=== PATIENT | male | born 1965 | race Hispanic/Latino ===

== ENCOUNTER 2018-06-16 09:25 | Inpatient (IN) | payer BC ==
[2018-06-15 09:06] LABS: BASOPHILS % 0.3 % (0.0-1.0); EOSINOPHILS # (AUTO) 0.3 (0.0-0.4); EOSINOPHILS % 2.8 % (0.0-6.0); HEMATOCRIT 44.2 % (38.2-49.6); HEMOGLOBIN 14.6 g/dL (14.0-18.0); LYMPHOCYTES % 24.2 % (18.0-39.1); MEAN CORPUSCULAR HEMOGLOBIN 27.4 pg (28-32); MEAN CORPUSCULAR VOLUME 83.1 fL (81-99); MONOCYTES % 8.4 % (4.4-11.3); NEUTROPHILS # (AUTO) 7.8 (2.1-6.9); NEUTROPHILS % 63.7 % (38.7-80.0); PLATELET COUNT 267 x10e3/uL (140-360); RED BLOOD COUNT 5.32 x10e6/uL (4.3-5.7); RED CELL DISTRIBUTION WIDTH 13.8 % (11.7-14.4)
--- NOTE | 2018-06-15 09:31 | Diagnostic Imaging Report ---
EXAMINATION: PA and lateral views of the chest. COMPARISON: None CLINICAL HISTORY: Preoperative study for prostate surgery DISCUSSION: Lungs are well-inflated and without focal airspace consolidation, pleural effusion, or pneumothorax. Tortuous thoracic aorta with otherwise normal cardiomediastinal contour. No pulmonary edema. No acute osseous abnormalities. Diffuse idiopathic skeletal hyperostosis of the thoracic spine incidentally noted. IMPRESSION: No acute cardiopulmonary abnormalities. Signed by: Dr. Tyshawn Arguello M.D. on 06/15/2018 9:28 AM
[2018-06-15 09:33] LABS: ALANINE AMINOTRANSFERASE 28 IU/L (0-55); ALBUMIN 3.6 g/dL (3.5-5.0); ALKALINE PHOSPHATASE 134 IU/L (40-150); ANION GAP 12.9 mmol/L (8-16); BLOOD UREA NITROGEN 15 mg/dL (7-26); BUN/CREATININE RATIO 15 (6-25); CALCIUM 9.1 mg/dL (8.4-10.2); CARBON DIOXIDE 24 mmol/L (22-29); CHLORIDE 103 mmol/L (98-107); CREATININE, SERUM 0.98 mg/dL (0.72-1.25); EST GLOMERULAR FILTRATION RATE > 60 ML/MIN (60-); GLUCOSE 115 mg/dL (74-118); POTASSIUM 3.9 mmol/L (3.5-5.1); SODIUM 136 mmol/L (136-145)
[2018-06-15 09:44] LABS: INR 0.83; PARTIAL THROMBOPLASTIN TIME 30.7 seconds (23.8-35.5); PROTHROMBIN TIME 12.2 seconds (11.9-14.5)
[~2018-06-16] VITALS: Ht 167.6 cm; Wt 125.8 kg
[~2018-06-16 09:25] MED LIST: AMLODIPINE BESY10 MG PO; METFORMIN HCL500 MG PO; SIMVASTATIN20 MG PO; TAMSULOSIN HCL0.4 MG PO
--- OUTSIDE RECORDS SUMMARY | 2018-06-16 09:26 | XMS REPORT ---
Author Author [facility] Address Unknown Phone Unavailable Care Team Providers Care Cotton Picking Machine Operator Name Role Phone MARCUS ACOSTA Unavailable Unavailable Problems This patient has no known problems. Allergies, Adverse Reactions, Alerts This patient has no known allergies or adverse reactions. Medications This patient has no known medications. Results Test Description Test Time Test Comments Text Results Atomic Results Result Comments CHEST 2 VIEWS 2018-06-15 09:27:00 [place] [address] Patient Name: GABRIEL DRISCOLL MR #: [id number] : 1965 Age/Sex: 53/M Req #: [id number] Adm Physician: Ordered by: MARCUS ACOSTA MD Report #: [id number] Location: OR Room/Bed: Procedure: [id number] DX/CHEST 2 VIEWS Exam Date: 06/15/18 Exam Time: 0840 REPORT STATUS: Signed EXAMINATION: PA and lateral views of the chest. COMPARISON: None CLINICAL HISTORY: Preoperative study for prostate surgery DISCUSSION: Lungs are well-inflated and without focal airspace consolidation, pleural effusion, or pneumothorax. Tortuous thoracic aorta with otherwise normal cardiomediastinal contour. No pulmonary edema. No acute osseous abnormalities. Diffuse idiopathic skeletal hyperostosis of the thoracic spine incidentally noted. IMPRESSION: No acute cardiopulmonary abnormalities. Signed by: Dr. Sosa Oliveros M.D. on 06/15/2018 9:28 AM Dictated By: SOSA OLIVEROS MD 7 Transcribed By: FAHAD on 06/15/18927 COPY TO: MARCUS ACOSTA MD
[2018-06-16] MEDS ORDERED: CEFOXITIN SOD 1 GM VIAL ONE (09:51)
[2018-06-16 10:35] LABS: BASOPHILS % 0.3 % (0.0-1.0); EOSINOPHILS # (AUTO) 0.4 (0.0-0.4); HEMATOCRIT 44.8 % (38.2-49.6); HEMOGLOBIN 15.1 g/dL (14.0-18.0); LYMPHOCYTES % 25.1 % (18.0-39.1); MEAN CORPUSCULAR HEMOGLOBIN 27.9 pg (28-32); MEAN CORPUSCULAR HGB CONC 33.7 g/dL (31-35); MEAN CORPUSCULAR VOLUME 82.7 fL (81-99); MONOCYTES % 8.4 % (4.4-11.3); NEUTROPHILS # (AUTO) 7.4 (2.1-6.9); NEUTROPHILS % 62.8 % (38.7-80.0); PLATELET COUNT 261 x10e3/uL (140-360); RED BLOOD COUNT 5.42 x10e6/uL (4.3-5.7); RED CELL DISTRIBUTION WIDTH 13.9 % (11.7-14.4)
[2018-06-16] MEDS ORDERED: BELLADONNA/OPIUM 30 MG SUPP RC ONE (12:04)
[2018-06-16] MEDS ORDERED: MORPHINE SULFATE INJ 4 MG/ML INJ 1ML IV PRN (14:15)
--- NOTE | 2018-06-16 14:35 | Operative Report ---
DATE OF PROCEDURE: June 16, 2018 PREOPERATIVE DIAGNOSIS: Benign prostatic hypertrophy with obstruction and decreased force of stream. POSTOPERATIVE DIAGNOSIS: Benign prostatic hypertrophy with obstruction and decreased force of stream. OPERATION PERFORMED: Green Light photovaporization of prostate. ANESTHESIA: General. INDICATIONS: This patient is a 53-year-old gentleman who has had severe problems with urgency, frequency, nocturia, and decreased force of stream. He had a normal prostate-specific antigen. A cystoscopy and uroflow revealed an obstructing prostate and a poor urinary stream. For further details, please refer to the history and physical. Procedure was done in the following fashion. The patient was taken to the operating room and placed under general anesthesia, and dressed with Hibiclens in the lithotomy position in the usual fashion. The urethral meatus was initially too small to accept the 22-Congolese Olympus laser cystoscope. The urethral meatus and distal urethra were dilated from 18-Congolese to 30-Congolese with [place] sounds. I then inserted the laser cystoscope under direct vision with the visual obturator. No other urethral strictures were encountered. The sphincter and verumontanum were intact. The prostate was estimated about 30 g. The bladder had mild trabeculation. Clear efflux was seen from both ureteral orifices. The ureteral orifices were close to the bladder neck. No tumors or bladder stones were identified. The visual obturator was removed. I then inserted the laser working instrument. The laser probe was set for the Green Light laser at 80 gamble for coagulation. On cutting, I started at 60 gamble and worked my way at 60 gamble around the bladder neck area taking care to avoid injury to the ureteral orifices. Once the bladder neck was opened up, I then proceeded to 120 gamble, and then worked my way backwards from the bladder neck. Ultimately, when I knew that I was in good shape and had lots of mobility, I then increased to 160 gamble. Care was taken to avoid injury to the verumontanum as a landmark. At the end of the procedure, the prostatic urethra appeared to be wide open and bleeding was minimal. The laser cystoscope was withdrawn, and a 22-Congolese, 3-way Coude catheter was inserted. The patient tolerated the procedure well and left the operating room in good condition. The total energy used was 123,031 joules. My plan at this time is to monitor the patient overnight on continuous bladder irrigation and on IV antibiotics. He also left the operating room with a belladonna and opium suppository. Job#: [id number] RI
[2018-06-16] MEDS ORDERED: FENTANYL CITRATE/PF 100MCG/2 ML INJ ONE ×2 (14:45→16:31)
[2018-06-16] MEDS: SODIUM CHLORIDE 0.9% 1000ML 1,000 ML IV SCH (15:40)
[2018-06-16 15:49] VITALS: BP 157/93
[2018-06-16 15:54] VITALS: BP 157/93
[2018-06-16] MEDS ORDERED: ONDANSETRON HCL INJ 2MG/ML 2ML 2 MG/ML VIAL ONE (15:57)
[2018-06-16] MEDS ORDERED: DEXAMETHASONE SOD PHOS INJ 4 MG/ML VIAL ONE (15:57)
[2018-06-16] MEDS ORDERED: PROPOFOL IV EMULSION 10 MG/ML 20 ML VIAL ONE (15:57)
[2018-06-16] MEDS ORDERED: LIDOCAINE HCL 2% LOCAL INJ 5 ML SDV VIAL INJ ONE (15:57)
[2018-06-16] MEDS ORDERED: SEVOFLURANE INHAL SOLN 250 ML PEN BTL ONE (15:57)
[2018-06-16] MEDS ORDERED: INFLUENZA VIRUS VAC SPLIT INJ 0.5 ML SYR IM SCH (16:13)
[2018-06-16] MEDS ORDERED: PNEUMOCOCCAL VACCINE POLYVALENT 23 MCG/0.5 ML VIAL IM SCH (16:13)
[2018-06-16] MEDS ORDERED: MIDAZOLAM HCL 2 MG/2 ML VIAL ONE (16:31)
[2018-06-16] MEDS: DOCUSATE SODIUM 100 MG CAP PO SCH (16:31)
[2018-06-16] MEDS: HYDROCODONE/APAP 7.5MG-325MG 1 EA TAB PO PRN ×2 (16:37→22:37)
[2018-06-16] MEDS: METFORMIN HCL 500 MG TAB PO SCH (16:39)
--- NOTE | 2018-06-16 19:10 | NUR ---
REPORT RECEIVED FROM OFF GOING NURSE, PT RESTING IN BED ALERT AND ORIENTED, NO DISTRESS NOTED, CBI IN PROGRESS WITH CLEAR OUT PUT, BED LOCKED AND LOW, IV INFUSING PER ORDER CALL LIGHT IN REACH, INSTRUCTED TO CALL WITH NEEDS
[2018-06-16 20:00] VITALS: BP 127/71
[2018-06-16] MEDS: SIMVASTATIN 20 MG TAB PO SCH (20:13)
[2018-06-16 20:15] VITALS: BP 127/78
[2018-06-17] VITALS (8 sets, daily range): BP systolic 112–151; BP diastolic 66–88
[2018-06-17] MEDS: SODIUM CHLORIDE 0.9% 1000ML 1,000 ML IV SCH ×3 (00:01→18:42)
[2018-06-17] MEDS: HYDROCODONE/APAP 7.5MG-325MG 1 EA TAB PO PRN ×2 (04:14→17:03)
--- NOTE | 2018-06-17 05:53 | NUR ---
PT PREVIOUSLY ASSISTED BACK IN BED FROM AMBULATING HALLWAY, PT ALERT AND ORIENTED, CBI IN PROGRESS, OUTPUT CLEAR WITH NO COMPLICATIONS NOTED, DENIES NEEDS, CALL LIGHT IN REACH, INSTRUCTED TO CALL WITH NEEDS, BED ALARM ACTIVATED
[2018-06-17 09:03] LABS: CHOL/HDL RATIO 4.4 (3.9-4.7)
[2018-06-17] MEDS: DOCUSATE SODIUM 100 MG CAP PO SCH ×2 (09:16→17:02)
[2018-06-17] MEDS: METFORMIN HCL 500 MG TAB PO SCH ×2 (09:16→17:02)
[2018-06-17] MEDS: AMLODIPINE BESYLATE 10 MG TAB PO SCH (09:18)
--- NOTE | 2018-06-17 10:04 | Consultation ---
DATE OF CONSULTATION: MEDICAL CONSULTATION PRIMARY CARE PHYSICIAN: None. UROLOGIST: Dr. Paul Rincon. REQUESTING PHYSICIAN: Dr. Paul Rincon. REASON FOR CONSULTATION: Medical management. CHIEF COMPLAINT: Enlarged prostate. HISTORY OF PRESENT ILLNESS: This is a 53-year-old man with a history of enlarged prostate with normal PSA of 0.4 and associated reduced urinary stream, postvoid dribbling and frequency. Patient underwent a GreenLight laser photovaporization and is now resting comfortably in bed. He denies any pain. PAST MEDICAL HISTORY: BPH with normal PSA, urinary tract infection, nocturia, hypertension, hyperlipidemia, diabetes mellitus type 2, colonic polyps, morbid obesity with BMI of 44.7, and erectile dysfunction. PAST SURGICAL HISTORY: Appendectomy, cystoscopy, vasectomy bilaterally, circumcision. ALLERGIES: PER ELECTRONIC MEDICAL RECORD. FAMILY AND SOCIAL HISTORY: Patient is . He drinks and smokes only on the weekends. He is a log truck driver. MEDICATIONS: Per electronic medical record. REVIEW OF SYSTEMS: Denies any fever, chills, sweats, nausea, vomiting, diarrhea, headache, vision changes, chest pain, back pain, or skin rash. PHYSICAL EXAMINATION VITAL SIGNS: Reviewed. GENERAL: A tired-appearing man, resting in bed. HEENT: Anicteric. CARDIOVASCULAR: Normal S1 and S2. LUNGS: Moderate breath sounds. ABDOMEN: Soft, nontender. EXTREMITIES: No edema or calf tenderness. : No Win in place. SKIN: Dry. PSYCHIATRIC: Normal affect. NEUROLOGICAL: Alert and oriented x3, moves all extremities. LABS: Reviewed. MEDICATIONS: Reviewed. ASSESSMENT: This is a 53-year-old man with; 1. Benign prostatic hypertrophy. 2. Diabetes mellitus type 2. 3. Morbid obesity, body mass index of 44.7. 4. Hypertension. 5. Hyperlipidemia. 6. Erectile dysfunction. PLAN 1. He is status post GreenLight photovaporization of the prostate. He is doing well, likely discharge later today, we will defer to Dr. Rincon. 2. Check hemoglobin A1c and lipid panel. 3. Resume his home medications. 4. Start a diabetic diet now. 5. Caloric restriction critical for improvement in his diabetes. Patient has lost 14 pounds since he started a new diet. 6. We will use SCD for DVT prophylaxis. 7. Disposition, discharge plan likely home today, will defer to Dr. Rincon. Patient can followup with me in the clinic for internal medicine management. Thank you, Dr. Rincon for this consultation. Job#: [id number] SHELBIE
--- NOTE | 2018-06-17 11:28 | NUR ---
Nutrition Screen Note RD Recommendation for Physician: Continue diet as ordered Plan of Care: RD following, monitoring for adequacy and tolerance Nutrition reason for involvement: Nutrition Risk Trigger - MST Primary Diagnose(s):BPH Ht: 66in Wt:277.25lbs BMI:44.7 kg/m2 IBW:142lbs RD Assessment:(06/17/2018) Initial encounter with patient. Pt is reporting a good appetite, but he has been trying to eat better. He states that he has voluntarily lost 14 pound since the beginning of the year. Pt denies any difficulty chewing or swallowing nor has any nausea,vomiting or diarrhea. Current Diet: 1800 ADA diet Malnutrition Evaluation (06/17/2018) The patient does not meet criteria for a specified degree of malnutrition at this time. Will re-evaluate at follow-up as appropriate. Diet Education Needs Assessment: Diet education not indicated. Diet Adequacy: Meeting calorie needs, Meeting protein needs, Meeting fluid needs Tolerance: Tolerating PO Nutrition Care Level: Damian Mckinnon RD, LD, CNSC
--- NOTE | 2018-06-17 15:18 | Progress Note ---
DATE: June 17, 2018 UROLOGY PROGRESS NOTE SUBJECTIVE: The patient is now one day status post GreenLight photovaporization of the prostate. He states that he feels good. The patient is breathing without difficulty. His abdomen is soft. There is clear efflux from the catheter with continuous bladder irrigation running at a slow rate. There is no evidence of epididymitis and there is no evidence of a deep venous thrombophlebitis. The patient's temperature is 98.5. His BUN is 15, creatinine 0.98, hemoglobin 15.1, and hematocrit 44.8. IMPRESSION AND PLAN: My plan at this time is to have the Win catheter removed in the morning for a trial of voiding. Job#: [id number] LPA
--- NOTE | 2018-06-17 19:10 | NUR ---
REPORT RECEIVED FROM OFF GOING NURSE, PT RETURNING TO ROOM FROM AMBULATING HALLWAY, RESTING IN BED ALERT AND ORIENTED, NO DISTRESS NOTED, CBI IN PROGRESS WITH NO COMPLICATIONS NOTED, IV INFUSING PER ORDER, PT DENIES NEEDS, CALL LIGHT IN REACH, INSTRUCTED TO CALL WITH NEEDS
[2018-06-17] MEDS: SIMVASTATIN 20 MG TAB PO SCH (20:51)
--- NOTE | 2018-06-17 22:07 | NUR ---
PT AMBULATING HALLWAY WITH NO DISTRESS NOTED
[2018-06-18] VITALS: BP 135/79
[2018-06-18] MEDS: HYDROCODONE/APAP 7.5MG-325MG 1 EA TAB PO PRN (01:15)
--- NOTE | 2018-06-18 02:10 | NUR ---
PT AMBULATING [address], NO DISTRESS NOTED, CBI IN PROGRESS, IV INFUSING PER ORDER
[2018-06-18] MEDS: SODIUM CHLORIDE 0.9% 1000ML 1,000 ML IV SCH (03:19)
[2018-06-18 04:00] VITALS: BP 127/72
--- NOTE | 2018-06-18 04:49 | NUR ---
PT RESTING IN BED ALERT AND ORIENTED, NO DISTRESS NOTED, CBI IN PROGRESS WITH NO COMPLICATIONS NOTED, IV INFUSING PER ORDER, CALL LIGHT IN REACH, INSTRUCTED TO CALL WITH NEEDS
--- NOTE | 2018-06-18 06:40 | NUR ---
CBI D/C'D, HUMPHRIES REMOVED, 30 ML REMOVED FROM HUMPHRIES BALLOON, NO DISTRESS OR COMPLICATIONS NOTED, DENIES NEED, PT AMBULATING HALLWAY, PT GIVEN URINAL AND EDUCATED TO INFORM NURSE OF FIRST VOID FOR ASSESSMENT, IV INFUSING PER ORDER
--- NOTE | 2018-06-18 07:00 | NUR ---
BEDSIDE ROUNDS COMPLETE NO DISTRESS NOTED UPDATED ON POC VOICED UNDERSTANDING, DENIES PAIN AT THIS TIME, CALL LIGHT IN REACH WILL CONTINUE TO MONITOR
[2018-06-18] MEDS ORDERED: COLACE100 MG PO (07:03)
--- NOTE | 2018-06-18 07:06 | NUR ---
IM- Progress Note O/N no events REVIEW OF SYSTEMS: Denies any fever, chills, sweats, nausea, vomiting, diarrhea, headache, vision changes, chest pain, back pain, or skin rash. PHYSICAL EXAMINATION VITAL SIGNS: Reviewed. GENERAL: A tired-appearing man, resting in bed. HEENT: Anicteric. CARDIOVASCULAR: Normal S1 and S2. LUNGS: Moderate breath sounds. ABDOMEN: Soft, nontender. EXTREMITIES: No edema or calf tenderness. : Casas in place. SKIN: Dry. PSYCHIATRIC: Normal affect. NEUROLOGICAL: Alert and oriented x3, moves all extremities. LABS: Reviewed. MEDICATIONS: Reviewed. ASSESSMENT: This is a 53-year-old man with; 1. Benign prostatic hypertrophy. 2. Diabetes mellitus type 2. 3. Morbid obesity, body mass index of 44.7. 4. Hypertension. 5. Hyperlipidemia. 6. Erectile dysfunction. PLAN 1. He is status post GreenLight photovaporization of the prostate. He is doing well, likely discharge later today, we will defer to Dr. Rincon. 2. Check hemoglobin A1c and lipid panel. 3. Resume his home medications. 4. Start a diabetic diet now. 5. Caloric restriction critical for improvement in his diabetes. Patient has lost 14 pounds since he started a new diet. 6. We will use SCD for DVT prophylaxis. 7. Disposition, discharge plan likely home today, will defer to Dr. Rincon. Patient can followup with me in the clinic for internal medicine management. Thank you, Dr. Rincno for this consultation. 06/18 doing well; casas discontinued; hba1c/LD 7.4/117. ADA diet; Medically clear for d/c. Govind Loco MD, PhD
[2018-06-18 07:47] VITALS: BP 135/76
--- NOTE | 2018-06-18 08:33 | NUR ---
PATIENT URINATED 300 ML IN URINAL AFTER URINARY CATHETER REMOVED.
[2018-06-18] MEDS: AMLODIPINE BESYLATE 10 MG TAB PO SCH (08:34)
[2018-06-18] MEDS: DOCUSATE SODIUM 100 MG CAP PO SCH (08:34)
[2018-06-18] MEDS: METFORMIN HCL 500 MG TAB PO SCH (08:34)
[2018-06-18 11:36] VITALS: BP 164/95
[2018-06-18] MEDS ORDERED: MACROBID 100 M100 MG PO (12:06)
[2018-06-18 12:22] VITALS: BP 164/95
--- NOTE | 2018-06-18 12:43 | Progress Note ---
DATE: June 18, 2018 DISCHARGE PROGRESS NOTE The patient is now 2 days status post GreenLight photovaporization of the prostate. The Win catheter was removed this morning. The patient has voided with a good stream. He has perfect control. He denies pain. My plan at this time is to have resume his preoperative medications and go home on Colace 100 mg p.o. twice daily and on Macrobid 100 mg p.o. twice daily, #20. He can stop the Flomax at this point in time. He will have return appointment to see me again in 2 weeks. Job#: [id number] SHELBIE
--- NOTE | 2018-06-18 14:29 | Discharge Summary ---
FINAL DISCHARGE DIAGNOSES 1. Benign prostatic hypertrophy with obstruction and decreased force of stream. 2. Non-insulin dependent diabetes mellitus. 3. Hypertension. OPERATIONS PERFORMED: GreenLight photovaporization of the prostate. SURGEON: Dr. Paul Rincon. CONSULTING PHYSICIAN: Dr. Govind Loco. HISTORY OF PRESENT ILLNESS: This patient is a 53-year-old male who for the past 10 years has had problems with urgency, frequency, decreased force of stream, and nocturia. He had a cystoscopy and uroflow, which revealed a poor urinary stream and an obstructing prostate. He had a normal prostate specific antigen. For further details, please refer to the preop history and physical. HOSPITAL COURSE: The patient came into the hospital on June 16, 2018 and had a GreenLight photovaporization of the prostate. He tolerated the procedure well and left the operating room in good condition. On the 2nd postoperative day, the Win catheter was removed, and the patient voided with a good urinary stream and he had perfect control. The patient's Flomax has been discontinued. He will go home on Macrobid 100 mg p.o. twice daily, Colace 100 mg p.o. twice daily, and resume his preoperative medications except for Flomax which is now discontinued. He will have return appointment to see me again in 2 weeks. Job#: [id number] LPA
== END 2018-06-18 12:55 | disposition home or self-care (01) | DRG 713 ==
LOC: OR 09:25 → PACU V 14:08 → MED/SURG 15:04
PROVIDERS: ADMIT Urology; ATTEND Urology
PROC: 0V508ZZ Destruction of Prostate, Via Natural or Artificial Opening Endoscopic (ICD-10-PCS; principal; 2018-06-16 12:00)
DX: N40.1 Benign prostatic hyperplasia with lower urinary tract symptoms (principal); Z68.41 Body mass index [BMI] 40.0-44.9, adult; N13.8 Other obstructive and reflux uropathy; R35.1 Nocturia; R39.12 Poor urinary stream; R30.0 Dysuria; N52.8 Other male erectile dysfunction; K64.4 Residual hemorrhoidal skin tags; E11.9 Type 2 diabetes mellitus without complications; I10 Essential (primary) hypertension; Z86.010 Personal history of colon polyps; E78.00 Pure hypercholesterolemia, unspecified; Z83.6 Family history of other diseases of the respiratory system; Z84.89 Family history of other specified conditions; E66.01 Morbid (severe) obesity due to excess calories; R35.0 Frequency of micturition; R39.15 Urgency of urination; Z01.810 Encounter for preprocedural cardiovascular examination; Z01.812 Encounter for preprocedural laboratory examination; Z01.811 Encounter for preprocedural respiratory examination; Z79.84 Long term (current) use of oral hypoglycemic drugs
CPT/HCPCS: 36415; 52648; 71046; 80053; 80061; 82948; 83036; 85025; 85610; 85730; 90732; 93005; 96361; J0694; J1100; J2001; J2250; J2405; J7030

== ENCOUNTER 2018-11-23 11:36 | Inpatient (IN) | payer BC ==
[~2018-11-23] VITALS: Ht 167.6 cm; Wt 125.6 kg
[~2018-11-23 11:36] MED LIST changes: +COLACE100 MG PO; +MACROBID 100 M100 MG PO
--- OUTSIDE RECORDS SUMMARY | 2018-11-23 13:19 | XMS REPORT | Clinical Summary ---
Author Author [facility] Address Unknown Phone Unavailable Care Team Providers Care Caustic Operator Name Role Phone Keyonna Baltazar MD PCP Allergies No Known Allergies Medications End Date Status Medication Sig Dispensed Refills Start Date 10/24/2018 pregabalin (LYRICA) 25 MG Take 1 60 capsule 0 capsule capsule (25 9 mg total) by mouth 2 (two) times a day for 30 days. Active Problems Not on file Encounters Care Team Description Date Type Specialty Matt Umanzor MD Pain in both lower extremities (Primary Dx); Other diabetic neurological complication associated with type 2 diabetes mellitus (HCC) 09/24/2018 Emergency Emergency Medicine after 11/22/2017 Social History Date Tobacco Use Types Packs/Day Years Used Current Some Day Smoker Smokeless Tobacco: Never Used Alcohol Use Drinks/Week oz/Week Comments Not Currently Sex Assigned at Date Recorded Not on file Industry Job Start Date Occupation Not on file Not on file Not on file Travel End Travel History Travel Start No recent travel history available. Last Filed Vital Signs Time Taken Vital Sign Reading 09/24/2018 3:03 PM CDT Blood Pressure 141/96 09/24/2018 3:03 PM CDT Pulse 81 09/24/2018 3:03 PM CDT Temperature 36.6 C (97.8 F) 09/24/2018 3:03 PM CDT Respiratory Rate 18 09/24/2018 3:03 PM CDT Oxygen Saturation 98% - Inhaled Oxygen - Concentration - Weight - - Height - - Body Mass Index - Plan of Treatment Health Maintenance Due Date Last Done Comments COLONOSCOPY SCREENING 2013 SHINGLES VACCINES (#1) 2013 INFLUENZA VACCINE 11/30/2018 Procedures Comments Procedure Name Priority Date/Time Associated Diagnosis XR KNEE 1 OR 2 VW LEFT STAT 09/24/2018 2:31 PM CDT XR KNEE 1 OR 2 VW RIGHT STAT 09/24/2018 2:30 PM CDT after 11/22/2017 Results * XR Knee 1 Or 2 Vw Left (09/24/2018 2:31 PM CDT) Specimen Narrative Performed At Procedure:XR KNEE 2 VW LEFT [facility] REFERRING PHYSICIAN: JILLIAN TYSON HISTORY: Knee paininitial exam COMPARISON: None FINDINGS: No evidence of fracture or dislocation is seen. The joint spaces are maintained. No osteolytic or osteoblastic lesion is identify. Regional soft tissue is unremarkable. No radiopaque foreign body is seen. XR KNEE2 VW LEFTacquired. IMPRESSION: No radiographic evidence of acute fracture or dislocation of the left knee. [id number] Procedure Note Interface, Radiology Results Incoming - 09/24/2018 2:39 PM CDT Procedure:XR KNEE 2 VW LEFT REFERRING PHYSICIAN: JILLIAN TYSON HISTORY: Knee pain initial exam COMPARISON: None FINDINGS: No evidence of fracture or dislocation is seen. The joint spaces are maintained. No osteolytic or osteoblastic lesion is identify. Regional soft tissue is unremarkable. No radiopaque foreign body is seen. XR KNEE 2 VW LEFT acquired. IMPRESSION: No radiographic evidence of acute fracture or dislocation of the left knee. [id number] Performing Organization Address City/State/Zipcode Phone Number [facility] [address] [place] [address] * XR Knee 1 Or 2 Vw Right (09/24/2018 2:30 PM CDT) Specimen Narrative Performed At Procedure:XR KNEE2 VW RIGHT [facility] REFERRING PHYSICIAN: JILLIAN TYSON HISTORY: Knee paininitial exam COMPARISON: None FINDINGS: No evidence of fracture or dislocation is seen. The joint spaces are maintained. No osteolytic or osteoblastic lesion is identify. Regional soft tissue is unremarkable. No radiopaque foreign body is seen. XR KNEE2 VW RIGHTacquired. IMPRESSION: No radiographic evidence of acute fracture or dislocation of the right knee. [id number] Procedure Note Interface, Radiology Results Incoming - 09/24/2018 2:39 PM CDT Procedure:XR KNEE 2 VW RIGHT REFERRING PHYSICIAN: JILLIAN TYSON HISTORY: Knee pain initial exam COMPARISON: None FINDINGS: No evidence of fracture or dislocation is seen. The joint spaces are maintained. No osteolytic or osteoblastic lesion is identify. Regional soft tissue is unremarkable. No radiopaque foreign body is seen. XR KNEE 2 VW RIGHT acquired. IMPRESSION: No radiographic evidence of acute fracture or dislocation of the right knee. [id number] Performing Organization Address City/State/Zipcode Phone Number [facility] [address] [place] [address] after 11/22/2017 Insurance Type Payer Benefit Subscriber ID Effective Phone Address Plan / Dates Group PPO BCBS BCBS xxxxxxxxxxxxxx [id number] CHOICE resent PPO/LUPE RUSSELL PPO Advance Directives Patient has advance care planning documents on file. For more information, charlee mayer contact: Abel Schneider [address] [place] [address]
[2018-11-23 13:30] VITALS: BP 127/91
--- NOTE | 2018-11-23 13:30 | NUR ---
RECD PT FROOM HOME DIRECT ADMIT,VIA W/C AAOX3 DENIES PAIN,NO DISTRESS NOTED,IV STARTED TO LT FA 20,TOLERATED WELL,DR DAO OFFICE INFORMED OF CONSULT.
[2018-11-23] MEDS ORDERED: DEXTROSE 50% SYRINGE 50 ML IV PRN (13:45)
[2018-11-23] MEDS ORDERED: TERBINAFINE HC250 MG PO (13:49)
--- NOTE | 2018-11-23 14:12 | NUR ---
RECEIVED ORDER FOR SNF, NO NOTES AVAILABLE TO PUT PACKET TOGETHER FOR SNF, NEED H AND P, PT, NOTES AND MEDICATIONS TO BE ABLE TO START PROCESS.
--- NOTE | 2018-11-23 14:16 | NUR ---
PT IS INDEPENDENT, EMPLOYED
[2018-11-23] MEDS ORDERED: SODIUM CHLORIDE 0.9% 250ML 250 ML ONE (14:31)
[2018-11-23 15:13] LABS: BILIRUBIN,URINE NEGATIVE (NEGATIVE); CLARITY,URINE SL CLOUDY (CLEAR); COLOR,URINE YELLOW (YELLOW); KETONES,URINE NEGATIVE (NEGATIVE); LEUKOCYTE ESTERASE ,URINE NEGATIVE (NEGATIVE); NITRITE,URINE NEGATIVE (NEGATIVE); PROTEIN,URINE DIPSTICK NEGATIVE (NEGATIVE); URINE UROBILINOGEN 0.2 mg/dL (0.2 - 1)
[2018-11-23] MEDS: VANCOMYCIN 1GM/NS 250 ML 250 ML IV SCH (15:30)
[2018-11-23 15:45] LABS: EPITHELIAL CELLS,URINE RARE /LPF
[2018-11-23 15:49] LABS: BASOPHILS % 0.4 % (0.0-1.0); EOSINOPHILS # (AUTO) 0.4 (0.0-0.4); EOSINOPHILS % 3.6 % (0.0-6.0); HEMATOCRIT 41.1 % (38.2-49.6); HEMOGLOBIN 13.4 g/dL (14.0-18.0); LYMPHOCYTES # (AUTO) 2.8 (1.0-3.2); MEAN CORPUSCULAR HEMOGLOBIN 27.2 pg (28-32); MEAN CORPUSCULAR HGB CONC 32.6 g/dL (31-35); MEAN CORPUSCULAR VOLUME 83.4 fL (81-99); MONOCYTES % 9.2 % (4.4-11.3); NEUTROPHILS # (AUTO) 6.5 (2.1-6.9); NEUTROPHILS % 60.4 % (38.7-80.0); PLATELET COUNT 265 x10e3/uL (140-360); RED BLOOD COUNT 4.93 x10e6/uL (4.3-5.7); RED CELL DISTRIBUTION WIDTH 14.4 % (11.7-14.4)
[2018-11-23 16:07] LABS: ANION GAP 12.7 mmol/L (8-16); BLOOD UREA NITROGEN 16 mg/dL (7-26); BUN/CREATININE RATIO 18 (6-25); CALCIUM 8.7 mg/dL (8.4-10.2); CARBON DIOXIDE 25 mmol/L (22-29); CHLORIDE 101 mmol/L (98-107); CREATININE, SERUM 0.91 mg/dL (0.72-1.25); EST GLOMERULAR FILTRATION RATE > 60 ML/MIN (60-); GLUCOSE 115 mg/dL (74-118); POTASSIUM 3.7 mmol/L (3.5-5.1); SODIUM 135 mmol/L (136-145)
[2018-11-23] MEDS: INSULIN REGULAR, HUMAN 100 UNIT/1 ML 3ML VIAL SQ SCH ×2 (16:30→22:26)
--- NOTE | 2018-11-23 17:26 | NUR ---
PT UP AMBULATING IN [place] ,TOLERATED WELL
[2018-11-23 17:35] VITALS: BP 127/91
[2018-11-23] MEDS: METFORMIN HCL 500 MG TAB PO SCH (17:49)
[2018-11-23] MEDS: DOCUSATE SODIUM 100 MG CAP PO SCH (17:49)
[2018-11-23 19:00] LABS: HIV 1&2 AB SCREEN NON-REACTIVE (NONREACTIVE)
[2018-11-23 20:00] VITALS: BP 134/84
[2018-11-23 21:10] VITALS: BP 134/84
--- NOTE | 2018-11-23 21:40 | Consultation ---
DATE OF CONSULTATION: 11/23/2018 INFECTIOUS DISEASE CONSULT. REASON FOR CONSULTATION: Prostatitis and urinary tract infection. Thank you, Dr. Loco, for asking me to see this patient. HISTORY OF PRESENT ILLNESS: The patient is a 53-year-old man, referred for prostatitis and urinary tract infection. He has been having dysuria, urinary frequency and small volume urination for several months. Also, he reports suprapubic discomfort. He denies fever, chills, hematuria, flank pain and rectal pain. He had a transurethral resection of the prostate in June 2018 for similar symptoms, which did not improve after surgery. The patient had been evaluated outpatient by the urologist. Next generation DNA sequencing of urine sample yielded 47% Staphylococcus epidermidis, 17% Actinomyces turicensis, 17% Staphylococcus hominis, 11% Corynobacterium glucuronolyticum and 5% Staphylococcus lugdunensis. Routine urine culture and sensitivity are not available at this time for review. PAST MEDICAL HISTORY: Diabetes mellitus type 2, Hypertension, BPH, and syphilis ?treated with oral antibiotics 20 years ago. The patient does not recall recent HIV screening. PAST SURGICAL HISTORY: Appendectomy and transurethral resection of the prostate. ALLERGIES: NO KNOWN DRUG ALLERGIES. MEDICATIONS: See MAR. The current antibiotic is vancomycin 1 g IV piggyback q.24 hours. FAMILY HISTORY: Noncontributory. SOCIAL HISTORY: He drinks 12 pack beers at one sitting once a month. Also he smokes when drinking beer, but vague about the quantity. He denies recreational drug use. REVIEW OF SYSTEMS: As per history of present illness. The patient complains of malaise at times, but no fever, chills, nausea, vomiting, or diarrhea. He has frequency of and small volume urination. PHYSICAL EXAMINATION: VITAL SIGNS: Temperature 97.8, pulse rate 71, respiratory rate 20, blood pressure 127/91, weight 277 pounds. HEENT: Normocephalic. There is no icterus or injection of conjunctivae. There is no ear or nasal discharge. Moist oral mucosa. No pharyngeal erythema or exudate. NECK: Supple. No meningismus. LUNGS: Clear to auscultation bilaterally. HEART: Normal S1, S2. Regular. ABDOMEN: Soft with mild suprapubic tenderness. No rebound tenderness. EXTREMITIES: There is no edema, clubbing, or cyanosis. The dorsalis pedis and posterior tibial pulses are palpable in both feet. SKIN: There is no acute erythema. SUPPORT TEAM MEMBER: Awake, alert, oriented to person, place, and time. There is decreased sensation to monofilament test of this feet. Nonfocal. LABORATORY AND DIAGNOSTICS: Pending. IMPRESSION: 1. ?Prostatitis/ urinary tract infection. 2. Status post transurethral resection of the prostate. 3. Binge drinking. PLAN: 1. Await urine culture result. 2. Check RPR and HIV screening. The patient agrees. 3. I have counseled the patient about binge drinking. Also, tobacco cessation counseling was provided to the patient. MD CHARLI Alcocer/FARRAH /[id number] MTDCrystal
[2018-11-24] VITALS (8 sets, daily range): BP systolic 118–139; BP diastolic 68–84
[2018-11-24] MEDS: ZOLPIDEM TARTRATE 5 MG TAB PO PRN ×2 (00:24→21:21)
--- NOTE | 2018-11-24 05:41 | NUR ---
H&P PRIMARY CARE PHYSICIAN: None. UROLOGIST: Dr. Paul Rincon. CHIEF COMPLAINT: abnormal labs and urinary symptoms HISTORY OF PRESENT ILLNESS: This is a 53-year-old man with a history of enlarged prostate now with persistent urinary symptoms, went to , gene sequencing done by PCR found Staph Epidermidis, Actinomyces, Staph hominis, Corynebacterium and Staph lugdunesis. However, no known urine culture positivity, sent to hospital for mgmt due to continued symptoms after almost 1 month oral antibiotics. PAST MEDICAL HISTORY: BPH with normal PSA, urinary tract infection, nocturia, hypertension, hyperlipidemia, diabetes mellitus type 2, colonic polyps, morbid obesity with BMI of 44.7, and erectile dysfunction, syphilis tx 20yrs ago PAST SURGICAL HISTORY: Appendectomy, cystoscopy, vasectomy bilaterally, circumcision, greenlight photovaroprization of prostate ALLERGIES: PER ELECTRONIC MEDICAL RECORD. FAMILY AND SOCIAL HISTORY: Patient is . He drinks and smokes only on the weekends. He is a heavy duty truck mechanic. MEDICATIONS: Per electronic medical record. REVIEW OF SYSTEMS: no f/c/s/N/V/D/COLLINS/vision changes/cp/sob/skin rash/back pain/dizziness. PHYSICAL EXAMINATION VITAL SIGNS: Reviewed. GENERAL: nad HEENT: Anicteric. CARDIOVASCULAR: Normal S1 and S2. LUNGS: Moderate breath sounds. ABDOMEN: Soft, nontender. EXTREMITIES: No edema or calf tenderness. : No Win. SKIN: Dry. PSYCHIATRIC: Normal affect. NEUROLOGICAL: Alert and oriented x3, moves all extremities. LABS: Reviewed. MEDICATIONS: Reviewed. ASSESSMENT: This is a 53-year-old man with; Dysuria BPH DM2 Morbid obesity BMI 44.7 HTN HLD Erectile dystunction PLAN UA and urine culture/blood cx ID consultation hba1c/lipids Home meds SCD dispo: if UA/culture negative, may be discharged home and f/u with urology. d/w and . Govind Loco MD, PhD.
[2018-11-24] MEDS: INSULIN REGULAR, HUMAN 100 UNIT/1 ML 3ML VIAL SQ SCH ×4 (07:30→21:22)
--- NOTE | 2018-11-24 07:40 | NUR ---
PATIENT IS AWAKE, ALERT, AND AMBULATING- PATIENT IN STABLE CONDITION WITH NO S/S OF RESPIRATORY DISTRESS. NO PAIN VOICED. CALL LIGHT IS WITHIN REACH, PATIENT INSTRUCTED TO CALL FOR ASSISTANCE NEEDED.
[2018-11-24] MEDS: METFORMIN HCL 500 MG TAB PO SCH ×2 (08:00→17:10)
[2018-11-24 08:01] LABS: CHOL/HDL RATIO 4.6 (3.9-4.7)
[2018-11-24] MEDS: AMLODIPINE BESYLATE 10 MG TAB PO SCH (08:42)
[2018-11-24] MEDS: TERBINAFINE 250 MG TAB PO SCH (08:43)
[2018-11-24] MEDS: DOCUSATE SODIUM 100 MG CAP PO SCH ×2 (08:44→17:10)
--- NOTE | 2018-11-24 09:27 | NUR ---
AT THIS TIME STILL NO AVAILABLE NOTES AT THIS TIME TO START PROCESS.
[2018-11-24] MEDS: VANCOMYCIN 1GM/NS 250 ML 250 ML IV SCH (12:57)
--- NOTE | 2018-11-24 16:37 | NUR ---
CM SPOKE WITH PT RE SNF PT IS VERY OPPOSED TO SNF HE WANTS TO GET BACK TO WORK [employer] AND WOULD LIKE PO ABX IF POSSIBLE DR LAWSON FOLLOWING; AWAIT BLOOD CX TO DETERMINE APPROPRIATE ABX THERAPY PT HAS APPLIED FOR FMLA AND TO WITHDRAW MONEY FROM HIS [address] VERDIN DECISION REGARDING ANTIBIOTICS FMLA PAPERWORK PLACED ON FRONT OF CHART FOR PHYSICIANS TO COMPLETE
--- NOTE | 2018-11-24 19:12 | NUR ---
PATIENT IN STABLE CONDITION WITH NO S/S OF RESPIRATORY DISTRESS- NO PAIN VOICED. CALL LIGHT IS WITHIN REACH, PATIENT INSTRUCTED TO CALL FOR ASSISTANCE NEEDED. BEDSIDE REPORT GIVEN TO ONCOMING NURSE.
--- NOTE | 2018-11-24 19:12 | NUR ---
RECEIVED PATIENT AAOX3 STABLE CONDITION, RESTING IN BED. DENIES PAIN, DENIES NEEDS. CALL LIGHT WITHIN REACH.
[2018-11-25] VITALS (9 sets, daily range): BP systolic 122–143; BP diastolic 75–83
--- NOTE | 2018-11-25 06:56 | NUR ---
REPORT GIVEN TO ONCOMING NURSE, NO NEEDS VOICED. AAOX3. NO DISTRESS OBSERVED. BED LOCKED AND IN LOWEST POSITION, CALL LIGHT WITHIN EASY REACH.
--- NOTE | 2018-11-25 07:00 | NUR ---
PATIENT IS ALERT AND IN STABLE CONDITION WITH NO S/S OF RESPIRATORY DISTRESS. PATIENT DENIES PAIN. CALL LIGHT IS WITHIN REACH OF PATIENT, PATIENT INSTRUCTED TO CALL FOR ASSISTANCE NEEDED.
[2018-11-25] MEDS: INSULIN REGULAR, HUMAN 100 UNIT/1 ML 3ML VIAL SQ SCH ×4 (07:28→21:00)
[2018-11-25] MEDS: DOCUSATE SODIUM 100 MG CAP PO SCH ×2 (08:20→16:44)
[2018-11-25] MEDS: METFORMIN HCL 500 MG TAB PO SCH ×2 (08:20→16:44)
[2018-11-25] MEDS: TERBINAFINE 250 MG TAB PO SCH (08:21)
[2018-11-25] MEDS: AMLODIPINE BESYLATE 10 MG TAB PO SCH (08:21)
[2018-11-25] MEDS: VANCOMYCIN 1GM/NS 250 ML 250 ML IV SCH (13:52)
--- NOTE | 2018-11-25 16:17 | NUR ---
CM SPOKE WITH NURSE RAYGOZA TODAY STATES DR LAWSON AND DR GUTIERREZ AGREE PT CAN BE DISCHARGED ON TUESDAY BC SO FAR NEGATIVE
--- NOTE | 2018-11-25 18:15 | Progress Note ---
DATE: 11/25/2018 Medicine Progress Note I am covering for Dr. Govind Loco. SUBJECTIVE: The patient was treated for probable underlying urinary tract infection. He came in complaining of stabbing pain around his bladder. He is currently doing well after IV antibiotic therapy. All his cultures found to be negative. PHYSICAL EXAMINATION: VITAL SIGNS: Temperature 98.3, pulse 60, respirations 18, blood pressure 136/77, and pulse ox 98% on room air. GENERAL: Not in acute distress, alert and oriented x3, cooperative on examination. HEENT: Head is normocephalic and atraumatic. Eyes; pupils are equal, round, and reactive to light. Extraocular movements are intact. Neck; supple, good range of motion. Throat; no evidence of erythema or exudates in posterior pharynx. Has poor dentition. PULMONARY: Clear to auscultation bilaterally. No wheezing, no rales, no rhonchi, no crackles appreciated. CARDIOVASCULAR: Positive S1 and S2. No murmurs, rubs, or gallops appreciated. ABDOMEN: Soft, nondistended, and nontender to palpation. Bowel sounds present. MUSCULOSKELETAL: Strength is 5/5 throughout. No evidence of muscle deficits on examination. No weakness appreciated. NEUROLOGICAL: Cranial nerves II through XII grossly intact. No evidence of any neurological deficits on exam. SKIN: Intact. Warm to touch. Good cap refill. PSYCHIATRIC: Normal affect and mood. EXTREMITIES: No edema. Good range of motion throughout. LABORATORY DATA: White count 10.7, hemoglobin 13, hematocrit is 41, and platelets of 265. Chemistry reviewed and stable. Urinalysis was negative for urinary tract infection. RPR nonreactive. HIV negative. MICROBIOLOGY: Blood cultures were negative. IMAGING STUDIES: None. IMPRESSION: 1. Probable urinary tract infection with underlying dysuria. 2. Benign prostatic hypertrophy. 3. Type 2 diabetes. 4. Hypertension. 5. History of erectile dysfunction. PLAN: At this time, there is no culture sent, but his UA looks pretty clear. Blood culture showed no growth today. Continue with IV antibiotics. ID is following very closely. Resume same home medications. If everything comes back to be negative tomorrow, we will discharge to home. Repeat labs in the morning. MD ROMAN Ozuna/FARRAH /[id number]
--- NOTE | 2018-11-25 19:14 | NUR ---
PATIENT IN STABLE CONDITION WITH NO S/S OF RESPIRATORY DISTRESS. NO PAIN VOICED. PATIENT INSTRUCTED TO CALL FOR ASSISTANCE NEEDED. BEDSIDE REPORT GIVEN TO ONCOMING NURSE.
--- NOTE | 2018-11-25 19:28 | NUR ---
PT IS RESTING IN BED. RESPIRATION IS EVEN AND UNLABORED, NO DISTRESS NOTED. BED IN THE LOWEST POSITION, LOCKED, AND CALL LIGHT WITHIN REACH. WILL CONTINUE TO MONITOR.
[2018-11-25] MEDS: ZOLPIDEM TARTRATE 5 MG TAB PO PRN (21:09)
[2018-11-26 04:45] VITALS: BP 127/72
[2018-11-26 06:07] LABS: BASOPHILS % 0.4 % (0.0-1.0); EOSINOPHILS # (AUTO) 0.3 (0.0-0.4); EOSINOPHILS % 3.1 % (0.0-6.0); HEMATOCRIT 45.2 % (38.2-49.6); HEMOGLOBIN 15.1 g/dL (14.0-18.0); LYMPHOCYTES # (AUTO) 2.4 (1.0-3.2); LYMPHOCYTES % 24.6 % (18.0-39.1); MEAN CORPUSCULAR HEMOGLOBIN 27.7 pg (28-32); MEAN CORPUSCULAR HGB CONC 33.4 g/dL (31-35); MEAN CORPUSCULAR VOLUME 82.8 fL (81-99); MONOCYTES # (AUTO) 0.7 (0.2-0.8); MONOCYTES % 7.2 % (4.4-11.3); NEUTROPHILS # (AUTO) 6.3 (2.1-6.9); NEUTROPHILS % 64.1 % (38.7-80.0); PLATELET COUNT 256 x10e3/uL (140-360); RED BLOOD COUNT 5.46 x10e6/uL (4.3-5.7); RED CELL DISTRIBUTION WIDTH 14.1 % (11.7-14.4)
[2018-11-26 06:34] LABS: BLOOD UREA NITROGEN 12 mg/dL (7-26); BUN/CREATININE RATIO 13 (6-25); CALCIUM 9.3 mg/dL (8.4-10.2); CARBON DIOXIDE 26 mmol/L (22-29); CHLORIDE 101 mmol/L (98-107); CREATININE, SERUM 0.93 mg/dL (0.72-1.25); EST GLOMERULAR FILTRATION RATE > 60 ML/MIN (60-); GLUCOSE 110 mg/dL (74-118); SODIUM 136 mmol/L (136-145)
--- NOTE | 2018-11-26 07:25 | NUR ---
PATIENT IS AWAKE AND IN STABLE CONDITION WITH NO S/S OF RESPIRATORY DISTRESS. PATIENT DENIES PAIN. CALL LIGHT IS WITHIN REACH, PATIENT INSTRUCTED TO CALL FOR ASSISTANCE NEEDED.
[2018-11-26] MEDS: INSULIN REGULAR, HUMAN 100 UNIT/1 ML 3ML VIAL SQ SCH ×2 (07:30→11:30)
[2018-11-26 08:00] VITALS: BP 140/79
[2018-11-26] MEDS: TERBINAFINE 250 MG TAB PO SCH (08:35)
[2018-11-26] MEDS: DOCUSATE SODIUM 100 MG CAP PO SCH (08:35)
[2018-11-26] MEDS: AMLODIPINE BESYLATE 10 MG TAB PO SCH (08:35)
[2018-11-26] MEDS: METFORMIN HCL 500 MG TAB PO SCH (08:35)
--- NOTE | 2018-11-26 12:32 | NUR ---
PATIENT AMBULATING IN THE HALLWAY- PATIENT IN STABLE CONDITION WITH NO S/S OF RESPIRATORY DISTRESS.
[2018-11-26] MEDS: VANCOMYCIN 1GM/NS 250 ML 250 ML IV SCH (13:27)
[2018-11-26 15:00] VITALS: BP 145/79
--- NOTE | 2018-11-26 15:05 | NUR ---
Visit made by the Spiritual Care Department Pastoral Visitor, Christopher Valencia. PV provided pastoral presence, hospitality, prayer, and supportive listening. Pastoral Visitor informed pt/family of the scope of [employer] and availability. REINALDO LOPEZ Supervisor [employer] Spiritual Care Department O: [phone] Pager: [phone] ([phone] number calling from)
--- NOTE | 2018-11-26 15:25 | NUR ---
PATIENT DISCHARGE HOME- PATIENT OFF THE UNIT AT 1517 PER AMBULATION ACCOMPANIED BY THE RN TO THE FRONT LOBBY. PATIENT IS IN STABLE CONDITION WITH NO S/S OF RESPIRATORY DISTRESS. NO PAIN VOICED. IV REMOVED WITH TIP INTACT. DISCHARGE TEACHING AND INSTRUCTIONS GIVEN TO THE PATIENT- WORK EXCUSE GIVEN TO THE PATIENT. ALL PERSONAL ITEMS TAKEN WITH THE PATIENT.
--- NOTE | 2018-11-27 02:01 | Discharge Summary ---
DISCHARGE DIAGNOSES: 1. Underlying dysuria with negative cultures, resolved. 2. Benign prostatic hypertrophy. 3. Type 2 diabetes. 4. Hypertension. 5. History of diastolic dysfunction. CONSULTANTS: ID. PHYSICAL EXAMINATION: VITAL SIGNS: Temperature is 98.1, pulse 66, respiratory rate is 20, blood pressure 120/79, pulse ox 96% on room air. LABORATORY DATA: White count is normal hematocrit is 45, platelets of 256. Chemistry; sodium 136, potassium 4, chloride 101, bicarb 26, anion gap of glucose is 110, calcium is 9.3, LDL of 81. Urinalysis negative. MICROBIOLOGY: Blood cultures were negative. IMAGING STUDIES: None. HOSPITAL COURSE: A 53-year-old male with and ID was consulted. While here all his cultures were found to be negative. The patient's symptoms resolved. As per ID recommendations, no antibiotics was needed upon discharge. The patient repleted three days worth of IV antibiotics. All cultures were found to be negative. The patient symptoms resolved with no complaints. The patient was cleared for discharge by ID. On the day of discharge, the patient is doing well back to normal baseline with no other issues. On the day of discharge, vital signs were stable. The patient was seen, evaluated, and examined thoroughly on the day of discharge. No other complaints. The patient verbalized understanding and agreed with plan of care to follow up accordingly as an outpatient with primary care physician in MEDICATIONS: See med reconciliation form. DISPOSITION: Home. CONDITION: Stable. DIET: Heart healthy. In the event of any worsening symptoms, the patient was advised to come back to the ED for further evaluation. Discharge summary took greater than 35 minutes. MD ROMAN Ozuna/FARRAH /[id number]
== END 2018-11-26 15:20 | disposition home or self-care (01) | DRG 728 ==
LOC: MED/SURG3 13:12
PROVIDERS: ADMIT Internal Medicine; ATTEND Internal Medicine
DX: N41.1 Chronic prostatitis (principal); N39.0 Urinary tract infection, site not specified; Z68.41 Body mass index [BMI] 40.0-44.9, adult; I50.30 Unspecified diastolic (congestive) heart failure; N40.1 Benign prostatic hyperplasia with lower urinary tract symptoms; R35.1 Nocturia; R30.0 Dysuria; N52.8 Other male erectile dysfunction; I11.0 Hypertensive heart disease with heart failure; F10.10 Alcohol abuse, uncomplicated; E66.01 Morbid (severe) obesity due to excess calories
CPT/HCPCS: 36415; 80048; 80061; 81001; 82948; 83036; 85025; 86592; 87040; 87390; G0433; G0435; J1817; J3370; J7050